=== PATIENT | female | born 1950 | race Caucasian/White ===

== ENCOUNTER 2019-01-30 08:09 | Observation (INO) ==
--- NOTE | 2019-01-04 14:13 | Anesthesiology Consultation ---
Date of Service January 04, 2019 Assessment & Plan (1) Encounter for pre-operative examination: Chart Review Chart Review: Acceptable Risk for Surgery and Patient NOT seen in Pre Admission Testing History Surgery Operation Date: 01/15/19 09:40 Proposed Procedures p Right Breast Lumpectomy with Needle Localization and with Right [place] Lymph Node Biopsy (Injection Only) - Neel Montelongo MD, FACS Height/Weight Height: 5 ft 2 in Weight: 81.647 kg Allergies Allergy/AdvReac Type Severity Reaction Status Date / Time No Known Allergies Allergy Verified 01/03/19 11:30 Medications Home Medications Medication Instructions Recorded Confirmed Last Taken bimatoprost [Lumigan] 1 drp OPHTHALMIC (EYE) PM 01/03/19 01/03/19 Unknown hydrochlorothiazide 25 mg PO QAM 01/03/19 01/03/19 Unknown rosuvastatin [Crestor] 5 mg PO HS 01/03/19 01/03/19 Unknown Past Medical History Medical History Cancer BREAST CANCER (RECENT DIAGNOSIS) Hyperlipidemia Hypertension Obesity Osteoarthritis Sleep apnea NO MACHINE Past Surgical History Surgical History Hx of colonoscopy Hx of total hysterectomy with removal of both tubes and ovaries LAPAROSCOPIC Social History Smoking Status: Never smoker Do You Dip or Chew Tobacco: No Hx Alcohol Use: Yes (RARE) Alcohol type: wine alcohol intake frequency: holidays/special occasions only Hx Substance Use: No substance use type: does not use Testing Electrocardiogram Date: 12/27/18 NSR with sinus arrhythmia at 74bpm. Possible LAE. LVH. Laboratory Results 12/21/18 WBC 4.5 (surgeon aware) H/H 14.4/42.2 PLATELETS 231 SODIUM 141 POTASSIUM 3.5 CHLORIDE 105 CO2 29 BUN 19 CREATININE 0.6 GLUCOSE 115 HGBA1C 5.9%
[~2019-01-30 08:09] MED LIST: CEFAZOLIN 2000MG 2,000 MG/15 ML SYR IV SCH; LR 15ML/HR IV SCH
--- NOTE | 2019-01-30 11:07 | History & Physical Bridge Note ---
Date of Service January 30, 2019 History & Physical Bridge Note I have examined the patient, reviewed the History & Physical and in the interval since the performance of the History & Physical I have noted the following changes of clinical significance: no changes noted
[2019-01-30] MEDS ORDERED: METHYLENE BLUE 0.5% 10 ML VIAL ONE (11:08)
[2019-01-30] MEDS ORDERED: BUPIVACAINE 0.5 % 5 MG/1 ML MPF 30ML VIAL ONE (11:08)
[2019-01-30] MEDS ORDERED: LIDOCAINE HCL 2% 2 ML VIAL/AMP(20MG/ML) INFIL ONE (11:10)
[2019-01-30] MEDS ORDERED: PROPOFOL IV EMULSION 10 MG/ML 20 ML VIAL IV ONE ×2 (11:10→13:03)
[2019-01-30] MEDS ORDERED: fentaNYL citrate 100 MCG/2 ML VIAL ONE ×2 (11:10→12:14)
[2019-01-30] MEDS ORDERED: MIDAZOLAM HCL 1 MG/ML 2ML VIAL ONE (11:10)
[2019-01-30] MEDS ORDERED: HYDROmorphone INJ 2 MG/ML SYR/VIAL IV PRN (11:12)
[2019-01-30] MEDS ORDERED: ATROPINE SULFATE 0.1 MG/ML 10ML SYR IV PRN (11:12)
[2019-01-30] MEDS ORDERED: ePHEDrine sulfate 50 MG/ML AMP IV PRN (11:12)
[2019-01-30] MEDS ORDERED: ePHEDrine sulfate 50 MG/ML SYR ONE (11:45)
[2019-01-30] MEDS ORDERED: ONDANSETRON INJ 2 MG/ML 2 ML VIAL ONE (11:45)
[2019-01-30] MEDS ORDERED: DEXAMETHASONE SOD INJ 4 MG/ML VIAL ONE (11:45)
[2019-01-30] MEDS ORDERED: PHENYLEPHRINE HCL 10 MG/ML VIAL ONE (12:07)
--- NOTE | 2019-01-30 13:24 | Operative Report ---
Post Operative Report Pre & Post Diagnosis Operation Date: 01/15/19 09:40 <No data on this case meets the specified criteria> Operation Date: 01/30/19 12:00 Pre-Op Diagnosis: Right Breast Cancer W/HOSP LOC & NM LYMPH INJ Post-Op Diagnosis: Right Breast Cancer W/HOSP LOC & NM LYMPH INJ and atypia Procedure Operation Date: 01/15/19 09:40 <No data on this case meets the specified criteria> Operation Date: 01/30/19 12:00 Actual Procedures p Right Breast Lumpectomy with Needle Localization and with Right [place] Lymph Node Biopsy - Neel Montelongo MD, FACS and Rt breast bx x 2 Surgeon Neel Montelongo MD, FACS Vulcanizer Operator Adolfo Barth Estimated Blood Loss 20 Findings Consistent with Post-Op Diagnosis Specimens LN and Rt breast tissue Description of Procedure see dictation I attest to the content of the Intraoperative Record and any orders documented therein. Any exceptions are noted below.
[2019-01-30] MEDS ORDERED: ACETAMINOPHEN 1,000 MG/100 ML VIAL IV ONE (13:27)
[2019-01-30] MEDS: fentaNYL citrate 100 MCG/2 ML VIAL IV PRN ×4 (13:52→14:07)
[2019-01-30] MEDS ORDERED: ONDANSETRON INJ 2 MG/ML 2 ML VIAL IV PRN (14:46)
[2019-01-30] MEDS ORDERED: PROMETHAZINE HCL 25 MG in SODIUM CHLORIDE 0.9% 50 ML IV PRN (14:46)
[2019-01-30] MEDS ORDERED: HYDROCODONE/ACETAMOPHEN 5/325MG TAB PO PRN ×2 (14:46)
[2019-01-30] MEDS ORDERED: PROMETHAZINE HCL 12.5 MG in SODIUM CHLORIDE 0.9% 50 ML IV PRN (14:46)
[2019-01-30] MEDS ORDERED: HYDROmorphone INJ 1 MG/ML SYRINGE IV PRN (14:46)
[2019-01-30] MEDS ORDERED: HYDROmorphone INJ 0.5 MG/0.5 ML SYR IV PRN (14:46)
--- NOTE | 2019-01-30 14:52 | Nuclear Medicine Report ---
LYMPHOSCINTIGRAPHY CLINICAL HISTORY: Right breast cancer. PROCEDURE: Using standard sterile technique, 4 intradermal and one deep injection of 0.5 mCi of Lymph oseek was placed in the right breast. The patient tolerated the procedure well. There were no immedia te complications. The patient was subsequently transported to the surgical suite. No imaging was obta ined at the referring physician's request. IMPRESSION: Injection of 0.5 mCi of Lymphoseek in the right breast. Electronically signed by: Otto Guzman M.D. 01/30/2019 2:50 PM
[2019-01-30] MEDS ORDERED: SODIUM CHLORIDE 0.9% 1000ML 1,000 ML IV SCH (15:00)
--- NOTE | 2019-01-30 15:21 | Mammography Report ---
MULTIPLE NEEDLE LOCALIZATION RIGHT BREAST: 01/30/2019 CLINICAL HISTORY: 68-year-old woman with recent biopsy-proven carcinoma in the 12:00 right breast. Ad ditionally, MRI guided biopsy performed in the right 8:00 to 9:00 breast yielded atypical ductal hype rplasia and MRI guided biopsy performed in the 3:00 right breast yielded atypical lobular hyperplasia . Patient presents for preoperative needle and wire localization of all 3 areas. COMPARISON: Comparison is made to exam dated: Screening mammography dated 12/04/2018, 12/01/2017, 10/26, 09/04/2015, right breast stereotactic biopsy dated 12/14/2018, bilateral breast MRI, right [address] MRI guided biopsies dated 01/19/2019. PATIENT CONSENT: The risks of the procedure were explained to the patient and informed consent was ob tained. A timeout was performed in the right breast was confirmed as the site for preoperative local ization for the biopsy-proven carcinoma in the 12:00 right breast, ADH and ALH noted in the lateral a nd medial right breast, from recent MRI guided biopsies. PROCEDURE DESCRIPTION: Prior right breast imaging was reviewed. All 3 metallic biopsy clips are the intended targets for preoperative localization. First, at the coiled biopsy clip and associated masoud malvin in the 12:00 middle to posterior right breast was targeted for localization. With the patient s tanding, the right breast was placed in CC from above positioning. A tomosynthesis copy was obtained that demonstrates the coiled biopsy marker and associated hematoma within the targeting window of an alpha numeric grid. The skin of the superior right breast was cleansed with alcohol. 1% buffered l idocaine was administered as local anesthesia. A 5 cm Keys II needle and wire combination was ins erted into the breast. The breast was released from CC compression and placed in ML compression. Ad justments were made as to the depth of the wire and the needle was removed leaving the wire in place, which is noted along the posterior aspect of the hematoma. Then, the right breast was placed in CC from below positioning and the medial biopsy clip was targete d first. A tomosynthesis view was obtained and the figure of 8-shaped biopsy clip was noted within t he targeting window of an alpha numeric grid. The skin of the inferior right breast was cleansed wit h alcohol and 1% buffered lidocaine was administered as local anesthesia. A 7.5 cm Keys II needle and wire combination was inserted in this location. Compression was released and the third biopsy c lip was targeted via an inferior approach in the lateral right breast. Another tomosynthesis view wa s obtained which demonstrates this third biopsy clip within the targeting window. Additional alcohol was used to cleanse the skin of the inferior and lateral right breast. A second 7.5 cm Keys II n eedle and wire combination was inserted in this location. Then the right breast was placed in mediallateral positioning and fine adjustments were made at all 3 locations. The 2 inferior needles were left in place, but the needle was removed from the superior 12:00 location. The patient tolerated the procedure well and there was no immediate complication. She was escorted t o the hospital operating room in satisfactory condition. The entire procedure was discussed with the operating surgeon prior to surgery. 3 specimen radiographs were obtained, which demonstrate all 3 biopsy clips evident within the specime n. Final surgical pathology is pending. IMPRESSION: NEEDLE LOCALIZATION Status post preoperative needle and wire localization for biopsy proven carcinoma, ADH and ALH in the right breast. All 3 specimen radiographs contain the targeted biopsy clips. Final surgical patholo gy is pending. Umm Rutherford M.D. ay/:01/30/2019 14:46:21 Attending Technologist: Farrah Segundo RT(R)(M), [facility] Duplicating Machine Servicer: RT Devin(R)(M), [facility]
--- NOTE | 2019-01-30 15:39 | Anesthesiology Progress Note ---
Date of Service January 30, 2019 Anesthesia Post Procedure Vital Signs Vital Signs: Temp Pulse Pulse Resp BP Pulse Ox 01/30/19 15:20 70 18 121/70 97 01/30/19 14:45 36.7 C 60 14 124/82 100 01/30/19 14:25 36.6 C 68 18 119/74 98 01/30/19 14:15 68 18 123/74 96 01/30/19 14:05 69 18 122/70 96 01/30/19 13:55 89 18 123/70 97 01/30/19 13:45 75 18 119/74 97 01/30/19 13:38 36.6 C 82 18 121/73 95 01/30/19 10:18 36.9 C 74 18 134/75 94 Pain Intensity Right Breast: Pain Intensity: 2 Notes Mental Status: alert / awake / arousable and participated in evaluation Patient Amnestic to Procedure: Yes Nausea / Vomiting: adequately controlled Pain: adequately controlled Airway Patency, RR, SpO2: stable & adequate BP & HR: stable & adequate Hydration State: stable & adequate Anesthetic Complications: no major complications apparent
--- NOTE | 2019-01-30 18:25 | Consultation ---
Date of Consultation January 30, 2019 Assessment & Plan (1) Post-operative state: s/p breast lumpectomy 01/30 pain control, bowel regimen, dvt proph per primary cbc, prp am Present on Admission?: No (2) Hypertension: continue home hctz (3) Hyperlipidemia: Continue home rosuvastatin Medicine will sign off, please let us know if we can be of further service in the future History of Present Illness Attending Physician: Neel Montelongo MD, FACS History of Present Illness Ms. Zamora is post op right breast mastectomy today. She is up to a chair, eating dinner with her family at bedside. 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 She has never smoked, no alcohol History of htn, hypercholesteremia, glaucoma, and hysterectomy Medications reviewed with patient Allergies Allergy/AdvReac Type Severity Reaction Status Date / Time No Known Allergies Allergy Verified 01/30/19 10:08 Home Medications Home Medications Medication Instructions Recorded Confirmed Type bimatoprost [Lumigan] 1 drp OPHTHALMIC (EYE) PM 01/03/19 01/30/19 History hydrochlorothiazide 25 mg PO QAM 01/03/19 01/30/19 History rosuvastatin [Crestor] 5 mg PO HS 01/03/19 01/30/19 History Review of Systems All systems reviewed and negative except as discussed in HPI Physical Exam Vital Signs (Past 24 Hours): Last Vital Signs Temp 36.7 C 01/30/19 17:48 Pulse 81 01/30/19 17:48 Resp 18 01/30/19 17:48 BP 117/75 01/30/19 17:48 Pulse Ox 97 01/30/19 17:48 Physical Exam: General: no distress Eyes: normal inspection, PERLL Respiratory: chest non tender, clear to auscultation, normal breath sounds, no respiratory distress, no accessory muscle use Cardiac: regular rate and rhythm, no rub or gallop, no murmur, no edema, no jvd GI/: active bowel sounds, no abd pain or tenderness, soft, non distended Extremities: normal range of motion, normal strength, non tender Neuro:oriented x 3, moves all extremities Psych: alert, normal mood and affect Skin: normal color, dry
[2019-01-30 19:35] LABS: Hematocrit (blood only) 42.9 % (37-47); Hemoglobin 14.8 g/dL (12.0-16.0); Mean Corpuscular Hgb Conc 34.5 g/dL (32-36); Mean Platelet Volume 9.7 fL (7.4-10.4); Platelet Count 208 K/uL (130-400); RDW Coefficient of Variation 13.1 % (11.5-14.5); RDW Standard Deviation 42.5 fL (36.4-46.3); Red Blood Count 4.82 M/uL (4.2-5.4); White Blood Count 7.84 K/uL (4.8-10.8)
[2019-01-30 19:59] LABS: BUN Creatinine Ratio 13.5 (10-20); Calcium 8.7 mg/dl (8.5-10.1); Creatinine Clr Calc Pharmacy 55.6 ml/min; Est GFR (African American) 69.7; Est GFR (Non-African American) 60.1; Potassium 3.8 mmol/L (3.5-5.1)
[2019-01-30] MEDS: CEFAZOLIN 1000MG 1,000 MG/7.5 ML SYR IV SCH (20:19)
[2019-01-30] MEDS ORDERED: ROSUVASTATIN CALCIUM 5 MG TAB PO SCH (21:00)
[2019-01-30] MEDS ORDERED: BIMATOPROST 0.01% OP SOLN 2.5 ML BTL OP SCH (21:00)
--- NOTE | 2019-01-30 23:09 | Operative Report ---
DATE OF OPERATION: 01/30/2019 NAME OF OPERATION: Right breast lumpectomy with sentinel lymph node biopsy and right breast biopsy x2. STAFF SURGEON: Neel Montelongo MD HOSPITALITY DIRECTOR: Ashwin Barth PA-C ANESTHESIA: General. DESCRIPTION OF PROCEDURE: The patient was brought in the operating room and placed on the operating table in supine position. Her right breast and axilla were prepped and draped in usual fashion. My visitor services assistant helped with prepping, draping and excision of the lymph node and breast tissue and also closure of the wounds. Initially, incision was made in the right axilla. I did use 0.5% plain Marcaine to anesthetize all incisions. Using the Neoprobe, Dissection was carried deeply down into the axilla finding the sentinel node which was relatively small sent for frozen section. Frozen section was negative. During the frozen section, we performed lumpectomy. The patient had a wire at the 12 o'clock position in the right breast, made an elliptical incision in the upper breast carrying dissection down around the mass and hematoma, removing the tissue. It was then marked with right breast tissue at 12 o'clock skin anterior, long silk suture lateral, short silk suture medial, plain suture superior. I then took additional superior tissue. This tissue was marked with a long silk suture lateral, short silk suture medial and methylene blue new margin. I took additional inferior tissue, marked similarly long silk suture lateral, short silk suture medial, methylene blue new margin. At this point, then we performed 2 breast biopsies. There was a needle at 4 o'clock. We made an incision around the needle and excised the tissue. I took additional tissue at the area of the tip of the needle and marilia area. These 2 pieces were placed into the Faxitron and substantiated. There was a needle at 8 o'clock inferiorly in the right breast. Incision was made around this needle excising the tissue and placing into the Faxitron. After verification of the tissue, all incisions were closed with the deep tissue reapproximated using 2-0 plain suture. The axilla closed using 4-0 nylon suture. The right 8 o'clock inferior skin closed using 5-0 Prolene suture. The other sites closed using subcuticular Monocryl with Steri-Strips. Dressings applied and patient transferred to recovery room in stable condition. I attest to the content of the Intraoperative Record and any orders documented therein. Any exception s are noted below.
[2019-01-31] MEDS: CEFAZOLIN 1000MG 1,000 MG/7.5 ML SYR IV SCH (03:41)
[2019-01-31] MEDS: ACETAMINOPHEN 325 MG TAB PO PRN ×2 (05:57→11:44)
--- NOTE | 2019-01-31 06:28 | Discharge Summary ---
PRINCIPAL DIAGNOSIS: Right breast cancer. PROCEDURES: The patient underwent a right breast lumpectomy with sentinel lymph node biopsy and right breast biopsy x2. HISTORY OF PRESENT ILLNESS: The patient is a 68-year-old female with biopsy proven breast cancer brought in for definitive surgery. HOSPITAL COURSE: She was taken to the operating room on 01/30/2019, where she underwent right lumpectomy with sentinel lymph node biopsy and breast biopsy x2. She has done very well overnight and is felt stable for discharge home today to be followed in the surgical clinic next week.
[2019-01-31] MEDS ORDERED: hydroCHLOROthiazide 25 MG TAB PO SCH (09:00)
== END 2019-01-31 12:10 | disposition home or self-care (01) ==
LOC: 3N 08:09 → ASU 08:09